=== PATIENT | female | born 1955 | race Caucasian/White ===

== ENCOUNTER 2016-10-21 17:56 | Emergency (ER) | payer OTHER ==
[2016-10-21 18:23] LABS: BILIRUBIN,URINE NEGATIVE (NEGATIVE); PH,URINE 5.5 PH (5.0-7.5)
[2016-10-21 18:25] LABS: UA w/ MICROSCOPIC CHARGE YES
[2016-10-21 19:08] LABS: WBC,URINE 0-3 /HPF (0-5)
[2016-10-21 19:09] LABS: UR CULTURE IF IND NOT INDICATED
--- NOTE | 2016-10-21 19:12 | ED Physician Documentation ---
PD HPI ABD PAIN - Stated complaint Stated Complaint: FEMALE - Chief complaint Chief Complaint: Abd Pain - History obtained from History obtained from: Patient - History of Present Illness Timing - onset: How many days ago (1-2) Timing - duration: Days Timing - details: Gradual onset, Still present Quality: Cramping, Aching, Pain Location: Suprapubic Radiation: No: Lower back, Left flank, Right flank Associated symptoms: Fever, Nausea, Dysuria (feeling of urgency). No: Vomiting , Diarrhea, Constipation, Chest pain Similar symptoms before: Has not had sx before Recently seen: Clinic (went to clinic today and had UA which was okay. Sent to ED for further workup.) Review of Systems Constitutional: reports: Fever, Chills Nose: denies: Rhinorrhea / runny nose, Congestion Throat: denies: Sore throat Cardiac: denies: Chest pain / pressure Respiratory: denies: Dyspnea, Cough GI: reports: Abdominal Pain, Nausea. denies: Vomiting, Constipation, Diarrhea : reports: Frequency. denies: Discharge Skin: denies: Rash, Lesions Neurologic: reports: Generalized weakness. denies: Focal weakness, Numbness, Near syncope Endocrine: denies: Weight loss, Easy bruising / bleeding Immunocompromised: denies: Immunocompromised PD PAST MEDICAL HISTORY - Past Medical History Cardiovascular: None Respiratory: None Neuro: None Endocrine/Autoimmune: None GI: None - Present Medications Home Medications: Ambulatory Orders Medication Instructions Recorded Confirmed Cephalexin [Keflex] 500 mg PO TID #21 capsule 10/21/16 Doxycycline Hyclate 0 tab PO DAILY 10/21/16 10/21/16 Naproxen 375 mg PO BID #20 tablet 10/21/16 Ondansetron HCl [Zofran] 4 mg PO Q6H PRN #20 tablet 10/21/16 Oxycodone HCl/Acetaminophen 1 each PO Q6H PRN #20 tablet 10/21/16 [Percocet 5-325 mg Tablet] Solantra Cream 1 applic TOP DAILY 10/21/16 metroNIDAZOLE [Flagyl] 250 mg PO TID #20 tablet 10/21/16 - Allergies Allergies/Adverse Reactions: Allergies Allergy/AdvReac Type Severity Reaction Status Date / Time amoxicillin Allergy Itching Verified 10/21/16 18:05 - Family History Family history: reports: Non contributory PD ED PE NORMAL - Vitals Vital signs reviewed: Yes - General General: Alert and oriented X 3, No acute distress, Well developed/nourished - HEENT HEENT: Pharynx benign - Neck Neck: Supple, no meningeal sign, No adenopathy - Cardiac Cardiac: RRR, No murmur - Respiratory Respiratory: Clear bilaterally - Abdomen Abdomen: Normal bowel sounds, Soft, Non distended, No organomegaly, Other ( tender in left lower abdomen with some guarding. No rebound nor percussion tenderness. ) - Female Female : Deferred - Rectal Rectal: Deferred - Back Back: No CVA TTP Results - Vitals Vitals: Oxygen O2 Source Room air - Labs Labs: Laboratory Tests 10/21/16 10/21/16 10/21/16 18:15 19:18 19:18 WBC 15.2 H RBC 4.55 Hgb 13.6 Hct 40.5 MCV 88.9 MCH 29.9 MCHC 33.6 RDW 13.7 Plt Count 287 MPV 8.5 Neut # 10.7 H Lymph # 3.4 [place] # 1.0 Eos # 0.0 Baso # 0.1 Absolute Nucleated RBC 0.00 Nucleated RBCs 0.0 Sodium 138 Potassium 3.6 Chloride 102 Carbon Dioxide 25 Anion Gap 11.0 BUN 14 Creatinine 0.7 Estimated GFR (MDRD) 85 L Glucose 102 H Calcium 9.0 Total Bilirubin 1.2 H AST 16 ALT 17 Alkaline Phosphatase 79 Total Protein 7.9 Albumin 4.2 Globulin 3.7 Albumin/Globulin Ratio 1.1 Lipase 26 Urine Color YELLOW Urine Clarity CLEAR Urine pH 5.5 Ur Specific [place] 1.020 Urine Protein NEGATIVE Urine Glucose (UA) NEGATIVE Urine Ketones 15 H Urine Occult Blood SMALL H Urine Nitrite NEGATIVE Urine Bilirubin NEGATIVE Urine Urobilinogen 0.2 (NORMAL) Ur Leukocyte Esterase NEGATIVE Urine RBC 0-5 Urine WBC 0-3 Ur Squamous Epith Cells RARE Squamous Urine Bacteria None Seen Urine Mucus Few Strands Ur Microscopic Review INDICATED Urine Culture Comments NOT INDICATED - Rads (name of study) abd CT Radiology: Prelim report reviewed (diverticulitis of lower colon without abscess nor perforation. ) PD MEDICAL DECISION MAKING - ED course Complexity details: reviewed results, re-evaluated patient (feeling better with some meds and prefers going home. Taking orals okay. Given starter of abx here. ), considered differential (urine is okay. Has diverticulitis of lower colon/ sigmoid, so is giving bladder pressure. ), d/w patient Departure - Departure Disposition: 01 Home, Self Care Clinical Impression: Diverticulitis of gastrointestinal tract Abdominal pain Qualifiers: Abdominal location: left lower quadrant Qualified Code(s): R10.32 - Left lower quadrant pain Condition: Stable Record reviewed to determine appropriate education?: Yes Instructions: ED Diverticulitis Follow-Up: CONY DANIEL [Primary Care Provider] - Prescriptions: metroNIDAZOLE [Flagyl] 250 mg PO TID #20 tablet Cephalexin [Keflex] 500 mg PO TID #21 capsule Naproxen 375 mg PO BID #20 tablet Oxycodone HCl/Acetaminophen [Percocet 5-325 mg Tablet] 1 each PO Q6H PRN #20 tablet PRN Reason: Pain Ondansetron HCl [Zofran] 4 mg PO Q6H PRN #20 tablet PRN Reason: Nausea / Vomiting Comments: Drink lots of fluids. Naproxen twice daily for inflammation. Metronidazole and cephalexin antibiotics three times daily for a week. Tylenol or Percocet for pains. Zofran for nausea as needed. Recheck if not improving over the next 2-3 days. Rest for couple of days. Return if worsening. Discharge Date/Time: 10/21/16 21:01
[2016-10-21 19:24] LABS: BASOPHILS # (AUTO) 0.1 10^3/uL (0.0-0.1); BASOPHILS % (AUTO) 0.6 %; EOSINOPHILS % (AUTO) 0.2 %; HCT - HEMATOCRIT 40.5 % (37.0-47.0); HGB - HEMOGLOBIN 13.6 g/dL (12.0-16.0); LYMPHOCYTES # (AUTO) 3.4 10^3/uL (1.5-3.5); LYMPHOCYTES % (AUTO) 22.4 %; MEAN CORPUSCULAR HEMOGLOBIN 29.9 pg (27.0-31.0); MEAN CORPUSCULAR HGB CONC 33.6 g/dL (32.0-36.0); MEAN CORPUSCULAR VOLUME 88.9 fL (81.0-99.0); MEAN PLATELET VOLUME 8.5 fL (7.9-10.8); MONOCYTES % (AUTO) 6.6 %; NEUTROPHILS # (AUTO) 10.7 10^3/uL (1.5-6.6); NEUTROPHILS % (AUTO) 70.2 %; RED BLOOD COUNT 4.55 10^6/uL (4.20-5.40); RED CELL DISTRIBUTION WIDTH 13.7 % (12.0-15.0); UNCORRECTED WHITE BLOOD COUNT 15.2 x10^3/uL; WHITE BLOOD COUNT 15.2 x10^3/uL (4.8-10.8)
[2016-10-21] MEDS ORDERED: ACETAMINOPHEN 1,000 MG/100 ML 100 ML IV STA (19:25)
[2016-10-21] MEDS ORDERED: KETOROLAC 60 MG/2 ML VIAL IVP STA (19:25)
[2016-10-21] MEDS ORDERED: cefTRIAXone 1 GM in SODIUM CHLORIDE 0.9% MINIBAG 100 ML IV STA (19:26)
[2016-10-21] MEDS ORDERED: KETOROLAC 30 MG/ML VIAL ONE (19:27)
[2016-10-21] MEDS ORDERED: ACETAMINOPHEN 1,000 MG/100 ML 100 ML IV ONE (19:27)
[2016-10-21] MEDS ORDERED: cefTRIAXone 1 GM VIAL ONE (19:27)
[2016-10-21 19:37] LABS: ALBUMIN/GLOBULIN RATIO 1.1 (1.0-2.2); BILIRUBIN,TOTAL 1.2 mg/dL (0.2-1.0); CREATININE 0.7 mg/dL (0.4-1.0); POTASSIUM 3.6 mmol/L (3.5-5.0); TOTAL PROTEIN 7.9 g/dL (6.7-8.2)
[2016-10-21] MEDS ORDERED: IOPAMIDOL-300 100 ML VIAL IVP ONE (19:55)
--- NOTE | 2016-10-21 20:22 | CT Preliminary Report ---
Exam: CT Abdomen/Pelvis W/ IMPRESSION: 1. Moderate uncomplicated mid sigmoid diverticulitis with trace free fluid in the pelvis. 2. Small hiatal hernia. 3. Distended gallbladder with dilated common bile duct of 12 mm diameter. [facility] SITE ID: [id number]
--- NOTE | 2016-10-21 20:25 | CT Report ---
EXAM: CT ABDOMEN AND PELVIS EXAM DATE: 10/21/2016 07:53 PM. CLINICAL HISTORY: Lower abdomen pain. COMPARISONS: None. TECHNIQUE: Routine helical CT imaging was performed through the abdomen and pelvis. IV contrast: 100 cc of Isovue-300. Enteric contrast: No. Reconstructions: Coronal and sagittal. In accordance with CT protocol optimization, one or more of the following dose reduction techniques w ere utilized for this exam: automated exposure control, adjustment of mA and/or KV based on patient s ize, or use of iterative reconstructive technique. FINDINGS: Lung Bases: Small hiatal hernia. Emphysema. Liver: Low-density abnormalities compatible with cysts up to 3.7 cm size. Gallbladder/Bile Ducts: Distended. No calcified gallstones. Dilated common bile duct with a diameter of 12 mm. No obstructing stone or mass identified. Spleen: Normal. Pancreas: Normal. Adrenal Glands: Normal. Kidneys: Normal. No masses or hydronephrosis. Peritoneal Cavity/Bowel: Diverticulosis. Mid sigmoid wall thickening with fat stranding. No abscess. No free air or adenopathy. No masses. The appendix is well visualized and normal. Pelvic Organs: Reproductive and bladder are unremarkable. Trace free fluid. Vasculature: No aneurysms or other significant abnormality. Bones: No significant abnormality. Other: None. IMPRESSION: 1. Moderate uncomplicated mid sigmoid diverticulitis with trace free fluid in the pelvis. 2. Small hiatal hernia. 3. Distended gallbladder with dilated common bile duct of 12 mm diameter. [facility] Referring Provider Line: [phone] SITE ID: [id number]
[2016-10-21] MEDS ORDERED: oxyCODONE/ACET 5/325 Prepack 4 PO STA (20:43)
[2016-10-21] MEDS ORDERED: metroNIDAZOLE 250 MG TABLET PO STA (20:43)
[2016-10-21] MEDS ORDERED: oxyCODONE/ACET 5/325 Prepack 4 PO ONE (20:52)
[2016-10-21] MEDS ORDERED: metroNIDAZOLE 250 MG TABLET PO ONE (20:52)
[2016-10-21 21:01] VITALS: BP 104/72
== END 2016-10-21 21:01 | disposition home or self-care (01) ==
LOC: ED 17:56
DX: K57.32 Diverticulitis of large intestine without perforation or abscess without bleeding (principal)
CPT/HCPCS: 36415; 74177; 80053; 81001; 83690; 85025; 96374; 96375; 99283; 99284; A9270; J0131; Q9967; 81003; 87086

== ENCOUNTER 2020-12-30 15:22 | Outpatient (CLI) | payer OTHER ==
[2020-12-30 18:41] LABS: ALBUMIN 4.4 g/dL (3.2-5.5); ALBUMIN/GLOBULIN RATIO 1.3 (1.0-2.2); BILIRUBIN,TOTAL 1.1 mg/dL (0.2-1.0); CALCIUM 9.2 mg/dL (8.5-10.3); CREATININE 0.7 mg/dL (0.4-1.0); POTASSIUM 3.6 mmol/L (3.5-5.0); TOTAL PROTEIN 7.9 g/dL (6.7-8.2)
== END 2020-12-30 15:23 | disposition home or self-care (01) ==
LOC: LAB.N 15:22
PROVIDERS: ATTEND Family Medicine
DX: I10 Essential (primary) hypertension (principal); R06.00 Dyspnea, unspecified; R60.9 Edema, unspecified; E55.9 Vitamin D deficiency, unspecified
CPT/HCPCS: 36415; 80053; 82306

== ENCOUNTER 2021-04-10 15:20 | Outpatient (CLI) | payer MEDICARE, OTHER | END 2021-04-10 15:21 | disposition home or self-care (01) | LOC: LAB.N 15:20 | PROVIDERS: ATTEND Family Medicine | DX: N39.0 Urinary tract infection, site not specified (principal) | CPT/HCPCS: 87086 ==

== ENCOUNTER 2021-06-21 09:44 | Outpatient (CLI) | payer MEDICARE, OTHER ==
[2021-06-21 13:50] LABS: BASOPHILS # (AUTO) 0.1 10^3/uL (0.0-0.1); EOSINOPHILS # (AUTO) 0.1 10^3/uL (0.0-0.7); EOSINOPHILS % (AUTO) 1.8 %; HCT - HEMATOCRIT 39.8 % (37.0-47.0); HGB - HEMOGLOBIN 13.1 g/dL (12.0-16.0); LYMPHOCYTES # (AUTO) 2.3 10^3/uL (1.5-3.5); LYMPHOCYTES % (AUTO) 32.2 %; MEAN CORPUSCULAR HEMOGLOBIN 30.3 pg (27.0-31.0); MEAN CORPUSCULAR HGB CONC 32.9 g/dL (32.0-36.0); MEAN CORPUSCULAR VOLUME 92.1 fL (81.0-99.0); MEAN PLATELET VOLUME 10.7 fL (7.9-10.8); MONOCYTES # (AUTO) 0.5 10^3/uL (0.0-1.0); MONOCYTES % (AUTO) 6.6 %; NEUTROPHILS # (AUTO) 4.1 10^3/uL (1.5-6.6); NEUTROPHILS % (AUTO) 58.1 %; PLT - PLATELET COUNT 332 10^3/uL (130-450); RED BLOOD COUNT 4.32 10^6/uL (4.20-5.40); RED CELL DISTRIBUTION WIDTH 13.5 % (12.0-15.0); WHITE BLOOD COUNT 7.1 x10^3/uL (4.8-10.8)
[2021-06-21 14:13] LABS: ALBUMIN/GLOBULIN RATIO 1.1 (1.0-2.2); ALKALINE PHOSPHATASE 66 IU/L (42-121); ALT ALANINE AMINOTRANSFERASE 20 IU/L (10-60); AST ASPARTATE AMINOTRANSFERASE 18 IU/L (10-42); BILIRUBIN,TOTAL 1.2 mg/dL (0.2-1.0); BUN - BLOOD UREA NITROGEN 19 mg/dL (6-20); CALCIUM 9.3 mg/dL (8.5-10.3); CARBON DIOXIDE - CO2 29 mmol/L (21-32); CHLORIDE 100 mmol/L (101-111); CHOL/HDL RATIO 3.8 (<4.4); CHOLESTEROL 212 mg/dL; CREATININE 0.7 mg/dL (0.4-1.0); GFR - MDRD 83 (>89); GLUCOSE 110 mg/dL (70-100); HDL CHOLESTEROL 56 mg/dL; LDL CHOLESTEROL,CALCULATED 142 mg/dL; LDL/HDL RATIO 2.5 (<4.4); POTASSIUM 3.5 mmol/L (3.5-5.0); SODIUM 140 mmol/L (135-145); TOTAL PROTEIN 7.7 g/dL (6.7-8.2); TRIGLYCERIDES 71 mg/dL; VLDL CHOLESTEROL 14 mg/dL
[2021-06-21 14:19] LABS: THYROID STIMULATING HORMONE 1.56 uIU/mL (0.34-5.60)
== END 2021-06-21 09:45 | disposition home or self-care (01) ==
LOC: LAB.N 09:44
PROVIDERS: ATTEND Family Medicine
DX: I10 Essential (primary) hypertension (principal); R60.9 Edema, unspecified; H35.30 Unspecified macular degeneration; R31.21 Asymptomatic microscopic hematuria
CPT/HCPCS: 36415; 80053; 80061; 83721; 84443; 85025

== ENCOUNTER 2021-12-01 15:41 | Outpatient (CLI) | payer MEDICARE, OTHER ==
[2021-12-01 18:24] LABS: CALCIUM 9.6 mg/dL (8.5-10.3); CREATININE 0.7 mg/dL (0.4-1.0); POTASSIUM 3.4 mmol/L (3.5-5.0)
== END 2021-12-01 15:42 | disposition home or self-care (01) ==
LOC: LAB.N 15:41
PROVIDERS: ATTEND Family Medicine
DX: I10 Essential (primary) hypertension (principal)
CPT/HCPCS: 36415; 80048